=== PATIENT | female | born 1965 | race Caucasian/White ===

== ENCOUNTER → 2019-09-25 13:12 | Outpatient (BNVA) | payer OTHER, SELFPAY | PROVIDERS: Visit Provider Anesthesiology | DX: M54.2 Cervicalgia (principal); M25.511 Pain in right shoulder; M25.512 Pain in left shoulder; M54.5 Low back pain; Z79.891 Long term (current) use of opiate analgesic | CPT/HCPCS: 99214 ==

== ENCOUNTER → 2020-02-27 13:19 | Outpatient (BNVA) | payer OTHER, SELFPAY | PROVIDERS: Family Provider Nurse Practitioner Family; Visit Provider Nurse Practitioner | DX: M54.2 Cervicalgia (principal); M54.5 Low back pain; Z79.891 Long term (current) use of opiate analgesic | CPT/HCPCS: 99213; 99214 ==

== ENCOUNTER → 2020-04-22 10:16 | Outpatient (BNVA) | payer OTHER, SELFPAY | PROVIDERS: Family Provider Nurse Practitioner Family; PCP Physician Assistant Medical; Visit Provider Nurse Practitioner | DX: M54.2 Cervicalgia (principal); M54.41 Lumbago with sciatica, right side; Z79.891 Long term (current) use of opiate analgesic | CPT/HCPCS: 99213 ==

== ENCOUNTER → 2020-07-09 14:08 | Outpatient (BNVA) | payer OTHER, SELFPAY | PROVIDERS: Family Provider Nurse Practitioner Family; PCP Physician Assistant Medical; Visit Provider Anesthesiology | DX: M54.5 Low back pain (principal); M54.2 Cervicalgia; Z79.891 Long term (current) use of opiate analgesic | CPT/HCPCS: 99213; 99214 ==

== ENCOUNTER → 2020-09-04 08:37 | Outpatient (BNVA) | payer BC, SELFPAY | PROVIDERS: Family Provider Nurse Practitioner Family; PCP Physician Assistant Medical; Visit Provider Anesthesiology | DX: M54.2 Cervicalgia (principal); M54.5 Low back pain; Z79.891 Long term (current) use of opiate analgesic | CPT/HCPCS: 99213 ==

== ENCOUNTER → 2020-10-29 07:54 | Outpatient (BNVA) | payer BC, SELFPAY | PROVIDERS: Family Provider Nurse Practitioner Family; PCP Physician Assistant Medical; Visit Provider Anesthesiology | DX: G89.29 Other chronic pain (principal); M54.2 Cervicalgia; M54.5 Low back pain; M25.511 Pain in right shoulder; M25.512 Pain in left shoulder; M15.1 Heberden's nodes (with arthropathy); M79.601 Pain in right arm; M79.602 Pain in left arm; Z79.891 Long term (current) use of opiate analgesic | CPT/HCPCS: 99214 ==

== ENCOUNTER → 2021-01-02 07:51 | Outpatient (BNVA) | payer BC, SELFPAY | PROVIDERS: Family Provider Nurse Practitioner Family; PCP Physician Assistant Medical; Visit Provider Anesthesiology | DX: M54.5 Low back pain (principal); M54.2 Cervicalgia; M25.511 Pain in right shoulder; M25.512 Pain in left shoulder; M15.1 Heberden's nodes (with arthropathy); Z79.891 Long term (current) use of opiate analgesic | CPT/HCPCS: 99214 ==

== ENCOUNTER → 2021-02-06 08:36 | Outpatient (BNVA) | payer BC, SELFPAY | PROVIDERS: Family Provider Nurse Practitioner Family; PCP Physician Assistant Medical; Visit Provider Internal Medicine | DX: M19.90 Unspecified osteoarthritis, unspecified site (principal); M54.2 Cervicalgia; Z11.59 Encounter for screening for other viral diseases | CPT/HCPCS: 99214 ==

== ENCOUNTER 2021-02-06 10:26 | Outpatient (CLI) | payer BC, SELFPAY ==
--- NOTE | 2021-02-06 11:52 | XR_ITS ---
WS: [id number] Exam: XR foot LT 2V [id number] Date/Time of Exam: 02/06/2021 12:18 PM Reason For Exam: M25.50 - Pain in unspecified joint No fracture or dislocation noted. Degenerative change at the first MP joint. Small heel spurs. No sof t tissue foreign bodies. XR/XR foot LT 2V [id number] IMPRESSION: 1. Minimal degenerative changes. No fracture or other significant finding.
--- NOTE | 2021-02-06 11:52 | XR_ITS ---
WS: [id number] Exam: XR lumbar spine 2-3V* [id number] Date/Time of Exam: 02/06/2021 12:18 PM Reason For Exam: M54.2 - Cervicalgia No fracture or dislocation. Degenerative anterolisthesis of L4 on L5 with about 7 mm forward movement of L4. Disc spaces are relatively well maintained. Facet DJD at L4-5 and L5-S1. Posterior elements a re otherwise intact. Mild spondylosis. XR/XR lumbar spine 2-3V* [id number] IMPRESSION: 1. No fracture or dislocation. 2. Degenerative anterolisthesis of L4 on L5 with about 7 mm forward movement of L4.
--- NOTE | 2021-02-06 11:52 | XR_ITS ---
WS: [id number] Exam: XR cervical spine fl/ex [id number] Date/Time of Exam: 02/06/2021 12:18 PM Reason For Exam: M54.2 - Cervicalgia No acute fracture or dislocation. Mild degenerative spondylolisthesis of C2 on C3, C3 on C4, and C4 o n C5. Approximately 2.5 mm forward movement at all 3 levels. Moderate facet DJD at all levels. The od ontoid is intact. Paraspinal soft tissues appear normal. The disc spaces are relatively well maintain ed. XR/XR cervical spine fl/ex [id number] IMPRESSION: 1. Mild degenerative anterolisthesis at C2-3, C3-4 and C4-5. This is most accen tuated in flexion. Approximately 2.5 mm forward movement of C2, C3 and C4. 2. Moderate facet DJD at all levels. 3. No fracture.
--- NOTE | 2021-02-06 11:52 | XR_ITS ---
WS: [id number] Exam: XR foot RT 2V [id number] Date/Time of Exam: 02/06/2021 12:18 PM Reason For Exam: M25.50 - Pain in unspecified joint No fracture or dislocation. Moderate bunion deformity. No soft tissue foreign bodies are seen. Tiny h eel spurs. XR/XR foot RT 2V [id number] IMPRESSION: 1. No fracture or dislocation. 2. Moderate bunion deformity with DJD at the first MP joint.
--- NOTE | 2021-02-06 11:52 | XR_ITS ---
WS: [id number] Exam: XR hand RT 2V [id number] Date/Time of Exam: 02/06/2021 12:18 PM Reason For Exam: M54.2 - Cervicalgia No fracture or dislocation. Marked osteoarthritis involving the DIP joints. This is most severe invol ving the second and fifth fingers. There are also mild degenerative changes in the PIP and MP joints. Normal soft tissues. XR/XR hand RT 2V [id number] IMPRESSION: 1. Degenerative changes most severe in the DIP joints. 2. No fracture or other significant finding.
--- NOTE | 2021-02-06 11:52 | XR_ITS ---
WS: [id number] Exam: XR sacroiliac jts m 3V [id number] Date/Time of Exam: 02/06/2021 12:18 PM Reason For Exam: L40.9 - Psoriasis, unspecified Moderate degenerative change noted involving the left SI joint. Mild right SI joint DJD. No fracture or bone destruction noted. The SI joints are open. XR/XR sacroiliac jts m 3V [id number] IMPRESSION: 1. Bilateral SI joint DJD more pronounced on the left than the right. 2. No fracture or other significant finding.
--- NOTE | 2021-02-06 11:52 | XR_ITS ---
WS: [id number] Exam: XR hand LT 2V [id number] Date/Time of Exam: 02/06/2021 12:18 PM Reason For Exam: M54.2 - Cervicalgia No fracture or dislocation. Moderately advanced osteoarthritis involving the DIP joints of the second and fifth fingers. Mild to moderate degenerative changes in the remaining IP joints. Normal soft tis sues. XR/XR hand LT 2V [id number] IMPRESSION: 1. No fracture or dislocation. 2. Degenerative changes most severe involving the DIP joints of the second and fifth fingers.
[2021-02-06 12:40] LABS: Creatine Phosphokinase 70 U/L (26-192); Magnesium 2.3 mg/dL (1.7-2.3); Phosphorus 4.3 mg/dL (2.5-4.5)
[2021-02-06 12:57] LABS: 25 Hydroxy Vitamin D 64 ng/mL (30-100)
[2021-02-06 13:10] LABS: Hepatitis B Core AB, Total Non-Reactive (Nonreactive); Hepatitis B Surface Antigen Non-Reactive (Nonreactive); Hepatitis C Virus Antibody Non-Reactive (Nonreactive)
[2021-02-06 13:25] LABS: Erythrocyte Sedimentation Rate 15 mm/hr (0-15)
[2021-02-09 14:12] LABS: Cyclic Citrullinated Peptide <16 UNITS
[2021-02-10 16:22] LABS: Gliadin Ab.IgA 5 U (<20); Gliadin Ab.IgG 2 U (<20)
[2021-02-12 02:19] LABS: Tissue Transglutaminase IgA Ab <1 U/mL; Tissue transglutaminase Ab.IgG 2 U/mL
[2021-02-12 16:51] LABS: Immunoglobulin A 294 mg/dL (47-310)
== END 2021-02-06 10:27 | disposition home or self-care (01) ==
LOC: RAD 10:37
PROVIDERS: PCP Physician Assistant Medical; Visit Provider Internal Medicine
DX: M25.50 Pain in unspecified joint (principal); M54.2 Cervicalgia; L40.9 Psoriasis, unspecified; Z11.59 Encounter for screening for other viral diseases
CPT/HCPCS: 36415; 72040; 72100; 72202; 73120; 73620; 82306; 82550; 82784; 83516; 83735; 84100; 85651; 86431; 86704; 86803; 87340

== ENCOUNTER → 2021-03-05 08:02 | Outpatient (BNVA) | payer BC, SELFPAY | PROVIDERS: PCP Physician Assistant Medical; Visit Provider Anesthesiology | DX: M54.2 Cervicalgia (principal); M25.511 Pain in right shoulder; M25.512 Pain in left shoulder; Z79.891 Long term (current) use of opiate analgesic | CPT/HCPCS: 99213 ==

== ENCOUNTER → 2021-03-09 09:32 | Outpatient (BNVA) | payer BC, SELFPAY | PROVIDERS: PCP Physician Assistant Medical; Visit Provider Internal Medicine | DX: M53.3 Sacrococcygeal disorders, not elsewhere classified (principal); M19.90 Unspecified osteoarthritis, unspecified site; Z79.899 Other long term (current) drug therapy | CPT/HCPCS: 99213 ==

== ENCOUNTER → 2021-04-30 08:29 | Outpatient (BNVA) | payer BC, SELFPAY | PROVIDERS: PCP Physician Assistant Medical; Visit Provider Family Medicine | DX: R73.03 Prediabetes (principal); E78.5 Hyperlipidemia, unspecified; I10 Essential (primary) hypertension; M19.90 Unspecified osteoarthritis, unspecified site; M53.3 Sacrococcygeal disorders, not elsewhere classified; Z79.891 Long term (current) use of opiate analgesic; Z79.899 Other long term (current) drug therapy; E78.00 Pure hypercholesterolemia, unspecified; M89.49 Other hypertrophic osteoarthropathy, multiple sites; Z68.33 Body mass index [BMI] 33.0-33.9, adult | CPT/HCPCS: 80053; 80061; 83036; 85025; 85651; 86140; 86812 ==

== ENCOUNTER → 2021-05-04 10:06 | Outpatient (BNVA) | payer BC, SELFPAY | PROVIDERS: PCP Physician Assistant Medical; Visit Provider Podiatrist Foot & Ankle Surgery | DX: M19.072 Primary osteoarthritis, left ankle and foot (principal); M19.071 Primary osteoarthritis, right ankle and foot; M79.671 Pain in right foot; M79.672 Pain in left foot | CPT/HCPCS: 73630 ==

== ENCOUNTER → 2021-05-06 08:50 | Outpatient (BNVA) | payer BC, SELFPAY | PROVIDERS: PCP Family Medicine; Visit Provider Anesthesiology | DX: G89.29 Other chronic pain (principal); M54.5 Low back pain; M54.2 Cervicalgia; M25.511 Pain in right shoulder; M25.512 Pain in left shoulder; Z79.891 Long term (current) use of opiate analgesic | CPT/HCPCS: 99214 ==

== ENCOUNTER → 2021-05-07 09:47 | Outpatient (BNVA) | payer BC, SELFPAY | PROVIDERS: PCP Family Medicine; Visit Provider Internal Medicine | DX: M53.3 Sacrococcygeal disorders, not elsewhere classified (principal); M89.49 Other hypertrophic osteoarthropathy, multiple sites; M54.2 Cervicalgia | CPT/HCPCS: 99214 ==

== ENCOUNTER → 2021-07-03 09:46 | Outpatient (BNVA) | payer BC, SELFPAY | PROVIDERS: PCP Family Medicine; Visit Provider Anesthesiology | DX: M53.3 Sacrococcygeal disorders, not elsewhere classified (principal); M54.2 Cervicalgia; G89.29 Other chronic pain; M25.511 Pain in right shoulder; M25.512 Pain in left shoulder; M79.641 Pain in right hand; M79.642 Pain in left hand; Z79.891 Long term (current) use of opiate analgesic | CPT/HCPCS: 99214 ==

== ENCOUNTER 2021-08-06 09:05 | Outpatient (CLI) | payer BC, SELFPAY ==
--- NOTE | 2021-08-06 09:30 | MR_ITS ---
WS: [id number] MRI CERVICAL SPINE p noncontrast. HISTORY: M53.3 - Sacrococcygeal disorders, not elsewhere classified, chronic neck pain. COMPARISON: None available. Technique: Multiplanar, multisequence noncontrast imaging of the cervical spine. Mild increase in the cervical lordosis. No fractures or marrow edema. Mild disc space narrowing and d esiccation and vertebral body osteophytes throughout the cervical spine. Signal within the cervical cord is normal. Visualized posterior fossa is unremarkable. Craniocervical junction, C1 and C2 relationship, odontoid process and soft tissues are normal. C2-C3: Normal. C3-C4: Mild osteophytic ridging and facet arthritis. Mild bilateral foraminal narrowing. C4-C5: Mild annular disc bulging and facet arthritis. No stenosis. C5-C6: Very shallow central disc protrusion and foraminal osteophytes. Slightly greater osteophytosis extending into the RIGHT foramen with mild displacement of the nerve roots. Mild to moderate RIGHT f oraminal stenosis and facet arthritis. C6-C7: Mild osteophytic ridging and disc bulging. Mild facet arthritis. C7-T1: Normal. Paraspinal soft tissue are normal. MR/MR cervical spin wo con* [id number] IMPRESSION: 1. Slight increase in the cervical lordosis with multilevel mild disc space na rrowing and osteophytic ridging within the vertebral bodies. 2. Mild to moderate RIGHT foraminal stenosis and facet arthritis at C5-6. Sten osis is predominantly due to osteophyte disease. 3. Mild bilateral foraminal stenosis due to osteophytic ridging and facet dise ase at C3-4. 4. Shallow central disc protrusion at C5-6. No central stenosis.
== END 2021-08-06 09:06 | disposition home or self-care (01) ==
LOC: RADSHAW 09:09
PROVIDERS: PCP Family Medicine; Visit Provider Internal Medicine
DX: M53.3 Sacrococcygeal disorders, not elsewhere classified (principal); M89.49 Other hypertrophic osteoarthropathy, multiple sites; M54.2 Cervicalgia
CPT/HCPCS: 72141

== ENCOUNTER → 2021-08-13 09:25 | Outpatient (BNVA) | payer BC, SELFPAY | PROVIDERS: PCP Family Medicine; Visit Provider Family Medicine | DX: M53.3 Sacrococcygeal disorders, not elsewhere classified (principal); M89.49 Other hypertrophic osteoarthropathy, multiple sites; Z79.891 Long term (current) use of opiate analgesic; Z79.899 Other long term (current) drug therapy | CPT/HCPCS: 80053; 85025; 85651; 86140 ==

== ENCOUNTER 2021-11-03 06:00 | Outpatient (RCR) | payer BC, SELFPAY | END 2021-11-19 23:59 | disposition home or self-care (01) | LOC: MPT 06:00 | PROVIDERS: PCP Family Medicine; Referring Provider Anesthesiology Pain Medicine; Visit Provider Anesthesiology Pain Medicine | DX: M50.90 Cervical disc disorder, unspecified, unspecified cervical region (principal); M54.2 Cervicalgia; G89.29 Other chronic pain | CPT/HCPCS: 80053; 85025; 85651; 86140; 97110; 97161; G0283 ==

== ENCOUNTER → 2021-11-03 11:08 | Outpatient (BNVA) | payer BC, SELFPAY | PROVIDERS: PCP Family Medicine; Referring Provider Internal Medicine; Visit Provider Internal Medicine | DX: M47.812 Spondylosis without myelopathy or radiculopathy, cervical region (principal); M53.3 Sacrococcygeal disorders, not elsewhere classified; Z79.891 Long term (current) use of opiate analgesic; Z79.899 Other long term (current) drug therapy | CPT/HCPCS: 80053; 85025; 85651; 86140 ==

== ENCOUNTER 2021-11-20 06:00 | Outpatient (RCR) | payer BC, SELFPAY | END 2021-12-19 23:59 | disposition home or self-care (01) | LOC: MPT 06:00 | PROVIDERS: PCP Family Medicine; Referring Provider Anesthesiology Pain Medicine; Visit Provider Anesthesiology Pain Medicine | DX: M50.90 Cervical disc disorder, unspecified, unspecified cervical region (principal); M54.2 Cervicalgia; G89.29 Other chronic pain | CPT/HCPCS: 97110; G0283 ==

== ENCOUNTER → 2021-12-30 09:46 | Outpatient (BNVA) | payer BC, SELFPAY | PROVIDERS: PCP Family Medicine; Visit Provider Anesthesiology Pain Medicine | DX: M19.019 Primary osteoarthritis, unspecified shoulder (principal); M25.511 Pain in right shoulder; M54.9 Dorsalgia, unspecified; G89.29 Other chronic pain; M50.90 Cervical disc disorder, unspecified, unspecified cervical region; M47.812 Spondylosis without myelopathy or radiculopathy, cervical region; M47.816 Spondylosis without myelopathy or radiculopathy, lumbar region; M53.3 Sacrococcygeal disorders, not elsewhere classified; M89.49 Other hypertrophic osteoarthropathy, multiple sites | CPT/HCPCS: 73030 ==

== ENCOUNTER → 2022-03-23 09:04 | Outpatient (BNVA) | payer BC, SELFPAY | PROVIDERS: PCP Family Medicine; Visit Provider Internal Medicine | DX: M53.3 Sacrococcygeal disorders, not elsewhere classified (principal); M89.49 Other hypertrophic osteoarthropathy, multiple sites | CPT/HCPCS: 80053; 85025; 85651; 86140 ==

== ENCOUNTER → 2022-08-09 09:34 | Outpatient (BNVA) | payer BC, SELFPAY | PROVIDERS: PCP Family Medicine; Visit Provider Family Medicine | DX: I10 Essential (primary) hypertension (principal); B02.29 Other postherpetic nervous system involvement; E78.5 Hyperlipidemia, unspecified; E78.00 Pure hypercholesterolemia, unspecified; M53.3 Sacrococcygeal disorders, not elsewhere classified; M19.90 Unspecified osteoarthritis, unspecified site; Z12.11 Encounter for screening for malignant neoplasm of colon; Z86.010 Personal history of colon polyps; Z12.31 Encounter for screening mammogram for malignant neoplasm of breast | CPT/HCPCS: 80053; 80061; 85025; 85651; 86140 ==

== ENCOUNTER 2022-10-01 06:18 | Day surgery (SDC) | payer BC, SELFPAY ==
[2022-09-29 09:36] VITALS: BMI 32.1
[2022-10-01 06:33] VITALS: BP 150/87; PULSE 69; RESP 16; TEMP 36.2; O2SAT 98
[2022-10-01] MEDS: sodium chloride 0.9% 1,000 ML 30 ML IV (06:44)
--- NOTE | 2022-10-01 07:05 | ANES.PREANE2 ---
Pre-Anesthetic Assessment Height/Weight: Height 1.73 m Weight 95.708 kg Temp Pulse Resp BP Pulse Ox O2 Del Method 97.2 F L 69 16 150/87 98 10/01/22 06:33 10/01/22 06:33 10/01/22 06:33 10/01/22 06:33 10/01/22 06:33 10/01/22 06:33 Operation Date: 10/01/22 08:00 Proposed Procedures p Colonoscopy 45038,Z12.11(Not Applicable) - Jon Mejia DO Familial anesthetic complications: None Was Beta Alice taken within 24 hours: N/A Was Clonidine taken within 24 hours: N/A Last intake: Intake Last Liquid Date 09/30/22 Last Liquid Time 22:30 Last Solid Date 09/29/22 Last Solid Time 00:00 Social Alcohol (3 shots of hard alcohol a night - denies any sequelae of alcoholism) and No alcohol Exam alert, oriented x 3, clear to auscultation bilaterally and regular rate & rhythm Airway Mallampati: Class III Dentition: other (bridge) CV/HEM Hypertension Metabolic Hyperlipidemia Musc/skel Lower Back Pain and Osteoarthritis/DJD Neuropsych Neuropathy Anesthetic Plan ASA status: 2 Anesthesia: MAC Risk of > 500 ml blood loss (7ml/kg in children): No Medications/Allergies Home Medications Medication Instructions Recorded Confirmed Last Taken Type hydrocodone 7.5 mg-ibuprofen 200 1 tab PO BID PRN pain 30 days #60 10/02/21 10/01/22 09/30/22 Rx mg tablet tabs tizanidine 4 mg tablet 4 mg PO BID PRN muscle spasticity 05/20/22 10/01/22 Unknown Rx #60 tabs atorvastatin 40 mg tablet 40 mg PO DAILY 90 days #90 tabs 08/09/22 10/01/22 09/30/22 Rx losartan 50 mg tablet 50 mg PO DAILY 90 days #90 tabs 08/09/22 10/01/22 09/30/22 Rx pregabalin 150 mg capsule 150 mg PO BID 30 days #60 caps 08/09/22 10/01/22 10/01/22 Rx sulfasalazine 500 mg tablet 0.5 g PO BID #60 tabs 09/27/22 10/01/22 09/30/22 Rx cetirizine 10 mg tablet (Zyrtec) 10 mg PO DAILY PRN Allergy Symptoms 09/29/22 10/01/22 Unknown History fluticasone propionate 50 1 spray intranasal Q12H PRN 09/29/22 10/01/22 Unknown History mcg/actuation nasal Allergy Symptoms spray,suspension Allergies Allergy/AdvReac Type Severity Reaction Status Date / Time almond Allergy SICK Verified 09/29/22 09:32 soy Allergy SICK Verified 09/29/22 09:32 wheat Allergy unknown Verified 09/29/22 09:32 Penicillins AdvReac Mild UNKNOWN Verified 09/29/22 09:32 Current Medications Generic Name Dose Route Start Last Admin Trade Name Freq PRN Reason Stop Dose Admin Sodium Chloride 1,000 mls @ 30 mls/hr 10/01/22 06:30 10/01/22 06:44 Sodium Chloride 0.9% IV 10/02/22 06:29 30 mls/hr .Q24H LEROY Administration PFSH Anesthesia Medical History (Updated 09/27/22 @ 16:05 by Phuc Ernst MD) Cervical spine pain Chronic cervical pain Chronic hand pain Distal interphalangeal nodule Encounter for long-term use of opiate analgesic Lumbar spine pain Opioid contract exists Surgical History (Updated 09/08/22 @ 14:10 by Jon Mejia DO) History of hysterectomy Hx of foot surgery Lipoma Removed 2013 upper back Social History Smoking and tobacco status: never smoked Second hand smoke exposure: No Alcohol intake: current Alcohol intake frequency: holidays/special occasions only Alcohol type: hard liquor History of recent travel: No Female Reproductive History Spontaneous abortions: No Data Anesthesia Cardiac Studies: No Data to Display
--- NOTE | 2022-10-01 07:53 | W.PM.OPSUD ---
Surgery/Procedure H&P Update DATE OF PROCEDURE: October 01, 2022 DATE H&P PERFORMED: 09/08/22 PLANNED PROCEDURE: Operation Date: 10/01/22 08:00 Proposed Procedures p Colonoscopy 51421,Z12.11(Not Applicable) - Jon Mejia DO
[2022-10-01 08:10] VITALS: BP 115/65; PULSE 58; RESP 16; TEMP 36.1; O2SAT 98
[2022-10-01 08:21] VITALS: BP 107/61; PULSE 60; RESP 16; O2SAT 96
--- NOTE | 2022-10-01 13:58 | ANE.PACU2 ---
Inpatient post-anesthesia follow up: Airway intact: Yes Vital signs: Temperature 97.0 F Pulse Rate 60 Respiratory Rate 16 Blood Pressure 107/61 Pulse Oximetry 96 Oxygen Delivery Me thod Room Air Oxygen Flow Rate Fraction of Inspir ed Oxygen Hydration adequate: Yes Nausea and vomiting: No Pain level: 1 Mental status: Baseline
== END 2022-10-01 08:40 | disposition home or self-care (01) ==
PROVIDERS: PCP Family Medicine; Visit Provider Surgery
PROC: 0DJD8ZZ Inspection of Lower Intestinal Tract, Via Natural or Artificial Opening Endoscopic (ICD-10-PCS; CPT 45378; principal; 2022-10-01 08:00)
DX: Z12.11 Encounter for screening for malignant neoplasm of colon (principal); I10 Essential (primary) hypertension; E78.5 Hyperlipidemia, unspecified
CPT/HCPCS: 45378; J2704; J7030

== ENCOUNTER → 2022-11-01 10:17 | Outpatient (BNVA) | payer BC, SELFPAY | PROVIDERS: PCP Family Medicine; Visit Provider Internal Medicine | DX: M53.3 Sacrococcygeal disorders, not elsewhere classified (principal); Z79.899 Other long term (current) drug therapy | CPT/HCPCS: 80053; 85025; 85651; 86140 ==

== ENCOUNTER → 2023-01-10 09:22 | Outpatient (BNVA) | payer BC, SELFPAY | PROVIDERS: PCP Family Medicine; Visit Provider Family Medicine | DX: I10 Essential (primary) hypertension (principal); B02.29 Other postherpetic nervous system involvement; M53.3 Sacrococcygeal disorders, not elsewhere classified; M50.90 Cervical disc disorder, unspecified, unspecified cervical region | CPT/HCPCS: 80053; 85025; 85651; 86140 ==

== ENCOUNTER → 2023-03-30 09:48 | Outpatient (BNVA) | payer BC, SELFPAY | PROVIDERS: PCP Family Medicine; Referring Provider Internal Medicine; Visit Provider Internal Medicine | DX: M19.90 Unspecified osteoarthritis, unspecified site (principal); M25.511 Pain in right shoulder; M53.3 Sacrococcygeal disorders, not elsewhere classified | CPT/HCPCS: 80053; 85025; 85651; 86140 ==

== ENCOUNTER → 2023-06-27 10:13 | Outpatient (BNVA) | payer BC, SELFPAY | PROVIDERS: PCP Family Medicine; Visit Provider Anesthesiology Pain Medicine | DX: M50.90 Cervical disc disorder, unspecified, unspecified cervical region (principal); M54.2 Cervicalgia; M54.9 Dorsalgia, unspecified; G89.29 Other chronic pain; M53.3 Sacrococcygeal disorders, not elsewhere classified | CPT/HCPCS: 72100 ==

== ENCOUNTER → 2023-07-11 09:31 | Outpatient (BNVA) | payer BC, SELFPAY | PROVIDERS: PCP Family Medicine; Visit Provider Family Medicine | DX: Z23 Encounter for immunization (principal); E78.5 Hyperlipidemia, unspecified; I10 Essential (primary) hypertension; M53.3 Sacrococcygeal disorders, not elsewhere classified; R73.9 Hyperglycemia, unspecified; Z13.1 Encounter for screening for diabetes mellitus; J44.9 Chronic obstructive pulmonary disease, unspecified; B02.29 Other postherpetic nervous system involvement; E78.00 Pure hypercholesterolemia, unspecified | CPT/HCPCS: 80053; 80061; 83036; 85025 ==

== ENCOUNTER → 2023-09-30 09:12 | Outpatient (BNVA) | payer BC, SELFPAY | PROVIDERS: PCP Family Medicine; Referring Provider Internal Medicine; Visit Provider Internal Medicine | DX: M53.3 Sacrococcygeal disorders, not elsewhere classified (principal); M15.1 Heberden's nodes (with arthropathy); M54.2 Cervicalgia; I10 Essential (primary) hypertension; Z79.899 Other long term (current) drug therapy | CPT/HCPCS: 80053; 85025; 85651; 86140 ==

== ENCOUNTER → 2024-01-09 09:02 | Outpatient (BNVA) | payer BC, SELFPAY | PROVIDERS: PCP Family Medicine; Visit Provider Family Medicine | DX: R73.03 Prediabetes (principal); I10 Essential (primary) hypertension; M54.2 Cervicalgia; M54.9 Dorsalgia, unspecified; G89.29 Other chronic pain; E78.5 Hyperlipidemia, unspecified; B02.29 Other postherpetic nervous system involvement; M53.3 Sacrococcygeal disorders, not elsewhere classified; E78.00 Pure hypercholesterolemia, unspecified | CPT/HCPCS: 80053; 83036 ==

== ENCOUNTER → 2024-05-24 12:03 | Outpatient (BNVA) | payer BC, SELFPAY | PROVIDERS: PCP Family Medicine; Visit Provider Internal Medicine Rheumatology | DX: Z79.899 Other long term (current) drug therapy (principal) | CPT/HCPCS: 36415; 80076; 82306; 82565; 85025; 85651; 86140 ==

== ENCOUNTER → 2025-04-23 09:48 | Outpatient (BNVA) | payer BC, SELFPAY | PROVIDERS: PCP Family Medicine; Visit Provider Family Medicine | DX: I10 Essential (primary) hypertension (principal); E78.00 Pure hypercholesterolemia, unspecified; R73.03 Prediabetes | CPT/HCPCS: 80053; 80061; 83036 ==

== ENCOUNTER 2025-05-15 11:54 | Outpatient (CLI) | payer BC, SELFPAY ==
[2025-05-15 13:14] LABS: Hematocrit 42.8 % (36-47); Hemoglobin 13.90 g/dL (11.27-16.99); Mean Corpuscular HGB Conc 32.5 g/dL (30-55); Mean Corpuscular Hemoglobin 30.3 pg (27-33); Mean Corpuscular Volume 93.2 fl (85-98); Nucleated Red Blood Cells % 0 %; Platelet Count 267 10^3/cmm (157-399); Red Blood Count 4.59 10^6/uL (3.85-5.65); White Blood Count 5.80 10^3/uL (3.29-11.43)
[2025-05-15 13:46] LABS: Alanine Aminotransferase 30 U/L (0-33); Albumin Level 4.5 g/dL (3.5-5.2); Alkaline Phosphatase 71 U/L (35-105); Aspartate Amino Transferase 32 U/L (0-32); Globulin 3.1 g/dL (1.3-4.6); Total Protein 7.6 g/dL (6.6-8.7)
== END 2025-05-15 11:55 | disposition home or self-care (01) ==
LOC: LAB 11:57
PROVIDERS: PCP Family Medicine; Visit Provider Internal Medicine Rheumatology
DX: Z79.899 Other long term (current) drug therapy (principal); M06.041 Rheumatoid arthritis without rheumatoid factor, right hand; M06.042 Rheumatoid arthritis without rheumatoid factor, left hand
CPT/HCPCS: 36415; 80076; 82565; 85025; 85651; 86140